=== PATIENT | male | born 2005 | race Caucasian/White ===

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

== ENCOUNTER 2025-02-07 20:32 | Emergency (ER) | payer BC, OTHER ==
[~2025-02-07] VITALS: Ht 185.4 cm; Wt 71.9 kg
[2025-02-07 20:33] VITALS: BP 134/84; TEMP 98.7; O2SAT 99
[2025-02-07] MEDS ORDERED: HYDR-643 PO (20:37)
== END 2025-02-07 21:43 | disposition home or self-care (01) ==
LOC: M ED 20:32
DX: S06.0X0A Concussion without loss of consciousness, initial encounter (principal); Y92.9 Unspecified place or not applicable; Y93.9 Activity, unspecified; Y99.0 Civilian activity done for income or pay; F17.210 Nicotine dependence, cigarettes, uncomplicated; W22.8XXA Striking against or struck by other objects, initial encounter; Z88.1 Allergy status to other antibiotic agents; Z79.899 Other long term (current) drug therapy